=== PATIENT | male | born 1930 | race Caucasian/White ===

== ENCOUNTER 2017-09-26 18:11 | Observation (INO) ==
--- NOTE | 2017-09-26 18:35 | Emergency Department Note ---
ED Disposition Clinical Impression: Dehydration after exertion, Near syncope, Asymptomatic PVCs Disposition: Admitted as Observation Condition on Discharge: Good Referrals: Evaristo Camacho MD [Primary Care Provider] - Time of Disposition: 19:25 - Critical Care Critical Care Time: No Attestation: On , the high probability of a clinically significant, sudden or life threatening deterioration of the following system(s) required my full and direct attention, intervention and personal management. The time I documented below is in addition to time spent performing reported procedures but includes the following listed in this critical care notation. Medical Decision Making - Jean-Pierre Inquiry Pt receiving controlled substance: No Vital Signs: 09/26/17 18:31 Temperature 97.9 F Temperature Source Oral Pulse Rate [Left Radial] 80 Respiratory Rate 20 Blood Pressure [Right Arm] 146/92 Blood Pressure Mean [Right Arm] 110 Blood Pressure Position [Right Arm] Sitting 02 Sat by Pulse Oximetry 97 Oxygen Delivery Method Room Air - Lab Data Lab results reviewed: Yes: I reviewed the patient's lab results. Lab Results 09/26/17 18:30: WBC 16.1 H, RBC 5.28, Hgb 15.1, Hct 48.7, MCV 92.1, MCH 28.5, MCHC 31.0 L, RDW 13.7, Plt Count 403, MPV 7.2 L, Neut % (Auto) 88.2 H, Lymph % ( Auto) 6.3 L, [place] % (Auto) 4.9, Eos % (Auto) 0.3, Baso % (Auto) 0.3, Neut # ( Auto) 14.2 H, Lymph # (Auto) 1.0, Upton # (Auto) 0.8, Eos # (Auto) 0.1, Baso # ( Auto) 0.0, Total Counted 100, Neutrophils % (Manual) 87 H, Lymphocytes % (Manual ) 7 L, Monocytes % (Manual) 6, Platelet Estimate Normal, RBC Morphology Normal 09/26/17 18:30: Sodium 141, Potassium 4.6, Chloride 105, Carbon Dioxide 25, Anion Gap 15.6 H, BUN 36 H, Creatinine 3.71 H, Estimated Creat Clear 14, Estimated GFR 15 L*, Est GFR ( Amer) 19 L*, Glucose 203 H, Calcium 9.4, Total Bilirubin 0.5, AST 24, ALT 23, Alkaline Phosphatase 112, Total Creatine Kinase 181, CK-MB (CK-2) 2.1, CK-MB (CK-2) Rel Index 1.2, Troponin I < 0.02, Total Protein 8.2, Albumin 3.7, Globulin 4.5 H, Albumin/Globulin Ratio 0.8 L Result diagrams: 09/26/17 18:30 09/26/17 18:30 Orders (Tests/Meds): ORDERS Category Date Time Status CT head/brain wo con Stat Cat Scan 09/26/17 18:33 Taken XR chest AP Stat Exams 09/26/17 18:33 Taken Urinalysis and Microscopic Stat Lab 09/26/17 18:33 Ordered - Radiology Data #1 Image(s): Chest Image Reviewed: Yes I reviewed the patient's radiology image Preliminary Findings: Normal/NAD, No Infiltrates Seen, Normal Lung Inflation Colton , Normal Heart Size - CT Data CT Scan: Head Time Received: 19:[address] Reviewed: Yes: I have reviewed the patient's CT results Preliminary Findings: Normal/NAD - ECG Data Tracing #1 NSR with one PVC, nl intervals no ST changes ECG initial impression date: 09/26/17 ECG initial impression time: 18:30 Normal Sinus Rhythm: Yes Arrhythmias present: PVC's ECG compared to prior tracings: this ECG reveals significant changes (previously , no ectopy; today, has one PVC on his EKG with bigeminy intermittently on monitor) - Physician Consults Physician Consulted: Dr. Gillis chicken boner for Dr. Camacho Time: 19:21 (admit, rehydrate, hold any diuretics) Reason -: Admission - Reevaluation(s) Time: 19:26 (alert, neurologically intact, able to urinate; no chest pain or palpitations) Dizzy HPI - General Chief Complaint: Weakness Stated Complaint: all most pass in fielld Time Seen by Provider: 09/26/17 18:32 Mode of Arrival: Wheelchair Source of Information: Spouse, Relative Limitations: No Limitations - History of Present Illness HPI Narrative: Patient has been feeling lightheaded for the past several days, per his . He has been out in the heat for 3 and a half days, working in the field. Today, his son found him out on the field, almost passed out, vomiting. No chest pain or sofia syncope. Arrives in the ED with no complaints but intermittently showing PVC's on the monitor. No cephalgia, no trauma, no unilateral neurological sx. No known hx CAD, pos HTN but neg hyperlipidemia, neg DM, neg tob use. FH neg for CAD or CVA. He has chronic back pain. Pt of Dr. Camacho; DNR. MD complaint: dizziness Onset (ago): day(s) Timing: gradual onset Description: lightheadedness History of similar episodes: No History of trauma: No Severity: moderate Relieving factors: remaining still Exacerbating factors: nothing Associated symptoms: diaphoresis, weakness, nausea, vomiting - Related Data Home Medications Medication Instructions Recorded Confirmed Aspirin [Aspirin 81mg chewable 81 mg PO DAILY 09/26/17 09/26/17 tab] Allergies Allergy/AdvReac Type Severity Reaction Status Date / Time No Known Allergies Allergy Verified 09/26/17 18:37 [facility] History I have reviewed the patient's past medical history: Yes Medical History: Reports:: Hypertension ROS Obtained: Yes All systems reviewed & no additional complaints Physical Exam - General General appearance: alert, in no apparent distress - Head Head exam: atraumatic, normocephalic, normal inspection - Eye Eye exam: Present: normal appearance, PERRL, EOMI - ENT ENT exam: Present: normal exam, normal oropharynx, mucous membranes moist, normal external ear exam - Neck Neck exam: Present: normal inspection, full ROM, trachea midline. Absent: meningismus, lymphadenopathy - Chest Chest inspection: Present: normal inspection, symmetric chest wall rise. Absent : tenderness - Respiratory Respiratory exam: Present: normal lung sounds bilaterally. Absent: respiratory distress - Cardiovascular Cardiovascular exam: Present: regular rate, normal rhythm. Absent: JVD - Abdominal Exam Abdominal exam: Present: soft, normal bowel sounds. Absent: distention, tenderness, guarding - Extremities Exam Extremities exam: Present: normal inspection, full ROM, normal capillary refill. Absent: calf tenderness - Back Exam Back exam: Present: normal inspection. Absent: tenderness - Neurological Exam Neurological exam: Present: alert, oriented X3, CN II-XII intact, reflexes normal, other (nonfocal exam; alert, printing specialist equal, no tremor, clear speech). Absent: motor sensory deficit - Psychiatric Psychiatric exam: Present: normal affect, normal mood - Skin Skin exam: Present: warm, dry, intact, normal color, diaphoresis - Lymphatic Lymphatic Findings: no adenopathy
[2017-09-26 18:46] LABS: Basophils % 0.3 % (0.1-2.0); Eosinophils # 0.1 K/mm3 (0.0-0.4); Eosinophils % 0.3 % (0.1-12.0); Hematocrit 48.7 % (42.0-52.0); Hemoglobin 15.1 g/dL (14.1-18.0); Lymphocytes % 6.3 K/mm3 (10-50); Mean Corpuscular Hemoglobin 28.5 pg (27.0-31.2); Mean Corpuscular Volume 92.1 fl (80-94); Mean Platelet Volume 7.2 fl (7.4-10.4); Monocytes # 0.8 K/mm3 (0.1-1.0); Monocytes % 4.9 % (1.7-9.3); Neutrophils # 14.2 K/mm3 (1.8-7.8); Neutrophils % 88.2 % (37.0-80.0); Platelet Count 403 K/mm3 (142-424); Red Blood Count 5.28 M/mm3 (4.60-6.20); Red Cell Distribution Width 13.7 % (11.5-17.5); White Blood Count 16.1 K/mm3 (4.8-10.8)
[2017-09-26 19:04] LABS: Lymphocytes % 7 % (10-50); Monocytes % 6 % (2-9); Neutrophils % 87 % (42-76); RBC Morphology Normal; Total Cells Counted 100
[2017-09-26 19:10] LABS: Alanine Aminotransferase 23 U/L (12-78); Albumin Level 3.7 gm/dL (3.4-5.0); Albumin/Globulin Ratio 0.8 (1.1-1.8); Alkaline Phosphatase 112 U/L (46-116); Anion Gap 15.6 mEq/L (5-15); Aspartate Amino Transferase 24 U/L (15-37); Bilirubin,Total 0.5 mg/dL (0.2-1.0); Blood Urea Nitrogen 36 mg/dL (7-18); Calcium 9.4 mg/dL (8.5-10.1); Carbon Dioxide 25 mmol/L (21.0-32.0); Chloride 105 mmol/L (98-107); Creatine Kinase 181 U/L (39-308); Globulin 4.5 gm/dl (1.3-3.2); Glucose 203 mg/dL (74-106); Potassium 4.6 mmoL/L (3.5-5.1); Sodium 141 mmol/L (136-145); Total Protein,Serum 8.2 gm/dL (6.4-8.2)
[2017-09-27 07:04] LABS: Albumin Level 2.9 gm/dL (3.4-5.0); Albumin/Globulin Ratio 0.8 (1.1-1.8); Anion Gap 14.5 mEq/L (5-15); Bilirubin,Total 0.4 mg/dL (0.2-1.0); Globulin 3.6 gm/dl (1.3-3.2); Potassium 4.5 mmoL/L (3.5-5.1); Total Protein,Serum 6.5 gm/dL (6.4-8.2)
[2017-09-27 07:29] LABS: Basophils % 0.2 % (0.1-2.0); Eosinophils % 0.1 % (0.1-12.0); Hematocrit 40.4 % (42.0-52.0); Lymphocytes # 0.9 K/mm3 (0.7-4.5); Lymphocytes % 7.3 K/mm3 (10-50); Mean Corpuscular HGB Conc 31.7 g/dL (31.8-35.4); Mean Corpuscular Hemoglobin 28.9 pg (27.0-31.2); Mean Corpuscular Volume 91.1 fl (80-94); Mean Platelet Volume 7.1 fl (7.4-10.4); Monocytes # 0.7 K/mm3 (0.1-1.0); Monocytes % 5.2 % (1.7-9.3); Neutrophils # 11.1 K/mm3 (1.8-7.8); Neutrophils % 87.2 % (37.0-80.0); Platelet Count 282 K/mm3 (142-424); Red Blood Count 4.43 M/mm3 (4.60-6.20); Red Cell Distribution Width 13.7 % (11.5-17.5); White Blood Count 12.8 K/mm3 (4.8-10.8)
[2017-09-27 07:34] LABS: Hemoglobin 12.7 g/dL (14.1-18.0)
[2017-09-27 07:39] VITALS: BP 123/84
--- NOTE | 2017-09-27 08:27 | H&P/Discharge Summary ---
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 His son found him lying outside, vomiting and awake but very weak and poorly responsive. Admitted to hospital from the ER with acute kidney injury, weakness and dehydration. This morning he feels much improved. [facility] History I have reviewed the patient's past medical history: Yes Medical History: Reports:: Hypertension Denies:: Diabetes Mellitus Type 1, Diabetes Mellitus Type 2, Internal Pacemaker Other Surgeries: No: Pacemaker - *Social History Educational Level: Attended High School Smoking Status: Never smoker Alcohol Intake: never Occupational Status: retired Housing: house Household Members: spouse - Psychiatric History Expresses thoughts of harming self/others: None Suicide Plan Description: No Plan *Family Hx:: Coronary Artery Disease, Hyperlipidemia Review of Systems - Review of Systems Review of systems:: pertinent systems reviewed and negative unless documented below Exam Vital signs and Labs for Last 24 Hours: Temp Pulse Resp BP Pulse Ox 98.3 F 88 18 123/84 94 L 09/27/17 07:37 09/27/17 07:37 09/27/17 07:37 09/27/17 07:37 09/27/17 07:37 Laboratory Results - last 24 hr 09/26/17 18:30: WBC 16.1 H, RBC 5.28, Hgb 15.1, Hct 48.7, MCV 92.1, MCH 28.5, MCHC 31.0 L, RDW 13.7, Plt Count 403, MPV 7.2 L, Neut % (Auto) 88.2 H, Lymph % ( Auto) 6.3 L, Ward % (Auto) 4.9, Eos % (Auto) 0.3, Baso % (Auto) 0.3, Neut # ( Auto) 14.2 H, Lymph # (Auto) 1.0, Ward # (Auto) 0.8, Eos # (Auto) 0.1, Baso # ( Auto) 0.0, Total Counted 100, Neutrophils % (Manual) 87 H, Lymphocytes % (Manual ) 7 L, Monocytes % (Manual) 6, Platelet Estimate Normal, RBC Morphology Normal 09/26/17 18:30: Sodium 141, Potassium 4.6, Chloride 105, Carbon Dioxide 25, Anion Gap 15.6 H, BUN 36 H, Creatinine 3.71 H, Estimated Creat Clear 14, Estimated GFR 15 L*, Est GFR ( Amer) 19 L*, Glucose 203 H, Calcium 9.4, Total Bilirubin 0.5, AST 24, ALT 23, Alkaline Phosphatase 112, Total Creatine Kinase 181, CK-MB (CK-2) 2.1, CK-MB (CK-2) Rel Index 1.2, Troponin I < 0.02, Total Protein 8.2, Albumin 3.7, Globulin 4.5 H, Albumin/Globulin Ratio 0.8 L 09/27/17 06:38: WBC 12.8 H, RBC 4.43 L, Hgb 12.7 L D, Hct 40.4 L, MCV 91.1, MCH 28.9, MCHC 31.7 L, RDW 13.7, Plt Count 282 D, MPV 7.1 L, Neut % (Auto) 87.2 H, Lymph % (Auto) 7.3 L, Ward % (Auto) 5.2, Eos % (Auto) 0.1, Baso % (Auto) 0.2, Neut # (Auto) 11.1 H, Lymph # (Auto) 0.9, Ward # (Auto) 0.7, Eos # (Auto) 0.0, Baso # (Auto) 0.0 09/27/17 06:38: Sodium 141, Potassium 4.5, Chloride 109 H, Carbon Dioxide 22, Anion Gap 14.5, BUN 31 H, Creatinine 2.23 H D, Estimated Creat Clear 23, Estimated GFR 28 L, Est GFR ( Amer) 34 L D, Glucose 138 H D, Total Bilirubin 0.4, AST 16 D, ALT 20, Alkaline Phosphatase 90, Total Protein 6.5, Albumin 2.9 L D, Globulin 3.6 H, Albumin/Globulin Ratio 0.8 L I & O for Last 24 hours: Intake & Output 09/24/17 09/25/17 09/26/17 09/27/17 11:59 11:59 11:59 11:59 Intake Total 360 / 360 Output Total 1400 / 1400 Balance -1040 / -1040 Weight 160 lb 7 oz Narrative: Patient this morning is awake and alert, feels better, a little bit of stomach pain but notes that he had stopped taking his Nexium over the past couple of days. Lungs are clear, heart rate regular, abdomen soft, no edema or clubbing. Alert , oriented 3. Hospital Course Hospital Course: Patient was admitted, placed on IV fluids. Initial creatinine above 3, improved very nicely by a full point this morning. Electrolytes also were unremarkable this morning. Patient feels much better. He will be discharged home. Instructed to stay inside in air conditioning, follow-up with me in 48 hours for creatinine recheck and exam in the office. We will hold his lisinopril, restart Nexium. Results Labs on day of discharge: Labs from last 24 hours 09/27/17 09/27/17 09/26/17 06:38 06:38 18:30 WBC 12.8 H RBC 4.43 L Hgb 12.7 L D Hct 40.4 L MCV 91.1 MCH 28.9 MCHC 31.7 L RDW 13.7 Plt Count 282 D MPV 7.1 L Neut % (Auto) 87.2 H Lymph % (Auto) 7.3 L Ward % (Auto) 5.2 Eos % (Auto) 0.1 Baso % (Auto) 0.2 Neut # (Auto) 11.1 H Lymph # (Auto) 0.9 Ward # (Auto) 0.7 Eos # (Auto) 0.0 Baso # (Auto) 0.0 Total Counted Pending Neutrophils % (Manual) Lymphocytes % (Manual) Monocytes % (Manual) Platelet Estimate Pending RBC Morphology Pending Sodium 141 141 Potassium 4.5 4.6 Chloride 109 H 105 Carbon Dioxide 22 25 Anion Gap 14.5 15.6 H BUN 31 H 36 H Creatinine 2.23 H D 3.71 H Estimated Creat Clear 23 14 Estimated GFR 28 L 15 L* Est GFR ( Amer) 34 L D 19 L* Glucose 138 H D 203 H Calcium Pending 9.4 Total Bilirubin 0.4 0.5 AST 16 D 24 ALT 20 23 Alkaline Phosphatase 90 112 Total Creatine Kinase 181 CK-MB (CK-2) 2.1 CK-MB (CK-2) Rel Index 1.2 Troponin I < 0.02 Total Protein 6.5 8.2 Albumin 2.9 L D 3.7 Globulin 3.6 H 4.5 H Albumin/Globulin Ratio 0.8 L 0.8 L 09/26/17 18:30 WBC 16.1 H RBC 5.28 Hgb 15.1 Hct 48.7 MCV 92.1 MCH 28.5 MCHC 31.0 L RDW 13.7 Plt Count 403 MPV 7.2 L Neut % (Auto) 88.2 H Lymph % (Auto) 6.3 L Ward % (Auto) 4.9 Eos % (Auto) 0.3 Baso % (Auto) 0.3 Neut # (Auto) 14.2 H Lymph # (Auto) 1.0 Ward # (Auto) 0.8 Eos # (Auto) 0.1 Baso # (Auto) 0.0 Total Counted 100 Neutrophils % (Manual) 87 H Lymphocytes % (Manual) 7 L Monocytes % (Manual) 6 Platelet Estimate Normal RBC Morphology Normal Sodium Potassium Chloride Carbon Dioxide Anion Gap BUN Creatinine Estimated Creat Clear Estimated GFR Est GFR ( Amer) Glucose Calcium Total Bilirubin AST ALT Alkaline Phosphatase Total Creatine Kinase CK-MB (CK-2) CK-MB (CK-2) Rel Index Troponin I Total Protein Albumin Globulin Albumin/Globulin Ratio DS: Diagnosis - Discharge Diagnosis (1) Dehydration after exertion Status: Acute (2) Near syncope Status: Acute Discharge Medications Discharge Medications: Home Medications Medication Instructions Recorded Confirmed Type Albuterol Sulfate [Albuterol HFA 90 mcg INHALATION QIDP PRN 09/26/17 09/26/17 History Inhaler] Aspirin [Aspirin 81mg chewable 81 mg PO DAILY 09/26/17 09/26/17 History tab] Budesonide/Formoterol Fumarate 10.2 gm IH DAILY 09/26/17 09/26/17 History [Symbicort 160-4.5 Mcg Inhaler] Esomeprazole Magnesium 40 mg PO DAILY 09/26/17 09/26/17 History Finasteride [Proscar 5mg Tablet] 5 mg PO DAILY 09/26/17 09/26/17 History Lisinopril [Lisinopril 10mg Tab] 10 mg PO DAILY 09/26/17 09/26/17 History Tamsulosin HCl [Flomax 0.4mg 0.4 mg PO DAILY 09/26/17 09/26/17 History capsule] Verapamil HCl [Verapamil Sr] 240 mg PO DAILY 09/26/17 09/26/17 History Disposition Disposition: Home, Self-Care
--- NOTE | 2017-09-27 08:48 | Pharmacy Consult Notes ---
[facility] Pharmacy VTE Monitoring - Patient Demographics Admission date: 09/26/17 Report Date: 09/27/17 Time: 08:48 Allergies/Adverse Reactions: Patient Allergies No Known Allergies Allergy (Verified 09/26/17 18:37) Height: 1.75 m Weight: 72.773 kg Patient Problems: Current Active Problems Dehydration after exertion (Acute) Near syncope (Acute) Asymptomatic PVCs (Acute) - VTE Risk Labs: VTE Related Lab Results Hgb 12.7 g/dL (14.1-18.0) L D 09/27/17 06:38 Hct 40.4 % (42.0-52.0) L 09/27/17 06:38 Plt Count 282 K/mm3 (142-424) D 09/27/17 06:38 BUN 31 mg/dL (7-18) H 09/27/17 06:38 Creatinine 2.23 mg/dL (0.70-1.30) H D 09/27/17 06:38 Estimated Creat Clear 23 mL/min (0-300) 09/27/17 06:38 Was VTE Risk Assessment Performed: Yes VTE Risk Level: Low Risk - Prophylaxis VTE Prophylaxis Ordered?: Yes Types of VTE Prophylaxis: TEDS Knee High Location of Applied Device: Bilateral Lower Extremeties
[2017-09-27 09:41] LABS: Lymphocytes % 9 % (10-50); Monocytes % 9 % (2-9); Neutrophils % 82 % (42-76); Total Cells Counted 100
[2017-09-27 09:42] LABS: RBC Morphology Normal
== END 2017-09-27 10:01 | disposition home or self-care (01) ==
LOC: ER 18:11 → 2ND 19:28 → INTOOBSV 19:48 → 2ND 19:50
PROVIDERS: ADMIT Emergency Medicine; ATTEND Internal Medicine Adolescent Medicine